=== PATIENT | female | born 1985 | race African-American/Black ===

== ENCOUNTER 2016-08-16 05:46 | Inpatient (IN) | payer OTHER ==
[~2016-08-16] VITALS: Ht 165.1 cm; Wt 115.7 kg
[2016-08-16] VITALS (13 sets, daily range): BP systolic 113–151; BP diastolic 60–94
[~2016-08-16 05:46] MED LIST: FERROUS SULFAT325 MG ORAL; LOSARTAN POTASS50 MG ORAL
[2016-08-16] MEDS ORDERED: cefOXitin Sod 2 GM in D5W 110 ML IVPB ONE (06:00)
[2016-08-16] MEDS ORDERED: NS Irrig 1000ml ONE (07:00)
[2016-08-16] MEDS ORDERED: Neostigmine 1mg/ml 10ml Inj ONE (07:00)
[2016-08-16] MEDS ORDERED: Nimbex 2mg/ml Inj 10ML IVP ONE (07:00)
[2016-08-16] MEDS ORDERED: fentaNYL 100 mcg/2 mL IV ONE (07:00)
[2016-08-16] MEDS ORDERED: LR 1000ml ONE (07:00)
[2016-08-16] MEDS ORDERED: Propofol 10mg/ml 20ml IV ONE (07:00)
[2016-08-16] MEDS ORDERED: Lidocaine 1% MPF 10mg/ml 5ml ONE (07:00)
[2016-08-16] MEDS ORDERED: Glycopyrrolate 0.2mg/ml 1ml Vial ONE (07:00)
[2016-08-16] MEDS ORDERED: Sterile Water Irrig 1000ml IRRIG ONE (07:00)
[2016-08-16] MEDS ORDERED: Lidocaine 1% Plain 30 ml INJ ONE (07:00)
[2016-08-16] MEDS ORDERED: Dexamethasone 4mg/ml vial ONE (07:00)
[2016-08-16] MEDS ORDERED: Ropivacaine 5mg/ml Vial 20ml INJ ONE (07:31)
[2016-08-16] MEDS ORDERED: Bupivacaine 0.5% Inj 30 ml vial INJ ONE (07:31)
[2016-08-16] MEDS ORDERED: LR 1000ml 1,000 ML IVLG SCH (08:46)
--- NOTE | 2016-08-16 08:53 | Anethesia Preoperative Eval ---
Anesthesia Pre-op PMH/ROS General Date of Evaluation: Aug 16, 2016 Time of Evaluation: 07:11 Anesthesiologist: Melissa ASA Score: ASA 2 Mallampati Score Class I : Soft palate, uvula, fauces, pillars visible Class II: Soft palate, uvula, fauces visible Class III: Soft palate, base of uvula visible Class IV: Only hard plate visible Mallampati Classification: Class II Surgeon: Neda Anesthesia History: none Family History: no anesthesia problems Allergies: Uncoded Allergies: Hayfever (Allergy, Intermediate, 08/16/16) Heavy congestion Medications: see eMAR Past Medical History Cardiovascular: Reports: HTN Hematology/Immune: Reports: anemia Musculoskeletal/Integumentary: Reports: other - Back Pain Other: obesity - Morbid BMI 44 Anesthesia Pre-op Phys. Exam Physician Exam Last Vital Signs Date Time Temp Pulse Resp B/P Pulse Ox O2 Delivery O2 Flow Rate FiO2 08/16/16 06:34 97.4 95 20 151/94 99 Room Air Constitutional: NAD Neurologic: CN 2-12 intact Cardiovascular: RRR Respiratory: CTA Gastrointestinal: S/NT/ND Airway Exam Mallampati Score: Class II MO: limited ROM: limited Teeth: intact Anesthesia Pre-op A/P Labs Urine Test Test 08/16/16 06:10 Urine HCG, Qualitative Negative Pre-Antibiotics Dru Grams Ancef IV Given Within 1 Hr of Incision: Yes Time Given: 08:26 Vlad Torres MD Aug 16, 2016 08:53
--- NOTE | 2016-08-16 08:56 | Immediate Post-Op Evaluation ---
Immediate Post-Op Evalulation Immediate Post-Op Evalulation Procedure: Open Abdominal Myomectomy Date of Evaluation: Aug 16, 2016 Time of Evaluation: 11:35 IV Fluids: 1200 LR Blood Products: 2 u PRBC, 1000 Albumin Estimated Blood Loss: 1700 Urinary Output: 200 Blood Pressure Systolic: 124 Blood Pressure Diastolic: 69 Pulse Rate: 89 Respiratory Rate: 16 O2 Sat by Pulse Oximetry: 99 Temperature (Fahrenheit): 97.2 Pain Score (1-10): 3 Nausea: No Vomiting: No Complications 0 Patient Status: awake, reacts, patent, extubated, none Hydration Status: adequate Dru Grams Ancef IV Given Within 1 Hr of Incision: Yes Time Given: 08:26 Vlad Torres MD Aug 16, 2016 08:56
[2016-08-16] MEDS ORDERED: Atropine Inj 1mg/10ml Syr IV PRN (09:00)
[2016-08-16] MEDS ORDERED: Ketorolac 30mg Inj IV PRN (09:00)
[2016-08-16] MEDS ORDERED: DiphenhydrAMINE 50mg/ml Inj IVP PRN ×2 (09:00→12:45)
[2016-08-16] MEDS ORDERED: Ketorolac 60mg Inj IV PRN (09:00)
[2016-08-16] MEDS ORDERED: Metoclopramide 10mg/2ml Inj IVP PRN (09:00)
[2016-08-16] MEDS ORDERED: LORazepam Inj 2mg/ml 1ml IV PRN (09:00)
[2016-08-16] MEDS ORDERED: Oxycodone/Acetaminophen 5-325 ORAL PRN (09:00)
[2016-08-16] MEDS ORDERED: Midazolam 2mg/2ml Inj IVP PRN (09:00)
[2016-08-16] MEDS ORDERED: Norco 5mg/325mg tab ORAL PRN (09:00)
[2016-08-16] MEDS ORDERED: fentaNYL 100 mcg/2 mL IV PRN (09:00)
[2016-08-16] MEDS ORDERED: Hydromorphone 0.5mg/0.5ml inj IVP PRN (09:00)
[2016-08-16] MEDS ORDERED: Norco 7.5mg/325mg tab ORAL PRN (09:00)
[2016-08-16] MEDS ORDERED: Meperidine 25mg/0.5ml Inj IV PRN (09:00)
[2016-08-16] MEDS ORDERED: Acetaminophen (Non formulary) 100 ML IV ONE (10:00)
[2016-08-16] MEDS ORDERED: Rate Change PCA 1 Each MISC PRN (11:15)
--- NOTE | 2016-08-16 11:19 | Pre-Procedure Note/Attestation ---
Pre-Procedure Note/Attestation Complete Prior to Procedure Planned Procedure: not applicable Procedure Narrative: Abdominal Myomectomy Indications for Procedure Pre-Operative Diagnosis: Very Large Uterine Fibroid Attestation I attest that I discussed the nature of the procedure; its benefits; risks and complications; and alternatives (and the risks and benefits of such alternatives ), prior to the procedure, with the patient (or the patient's legal claim representative). I attest that, if there was a reasonable possibility of needing a blood transfusion, the patient (or the patient's legal claim representative) was given the [facility] standardized written summary, pursuant to the Rom Michelle Blood Safety Act ([place] Health and Safety Code # 1645, as amended). I attest that I re-evaluated the patient just prior to the surgery and that there has been no change in the patient's H&P, except as documented below:NONE FILIPPO PENN Aug 16, 2016 11:19
--- NOTE | 2016-08-16 11:21 | Brief Operative Note ---
Immediate Post Operative Note Operative Note Pre-op Diagnosis: Very Large Uterine Fibroid Procedure: Abdominal Myomectomy Post-op Diagnosis: same as pre-op Surgeon: Alexus Penn Blanchard Grinder Operator: Justina Moran Anesthesiologist: Vlad Torres Anesthesia: general Specimen: yes - Myomas Complications: none Condition: stable Fluids: LR D5 @ 150 cc/hr Estimated Blood Loss: volume - 1700 ml Implant(s) used?: No ALEXUS PENN Aug 16, 2016 11:21
[2016-08-16 12:24] LABS: MEAN CORPUSCULAR HEMOGLOBIN 24.3 PG (27.0-31.0); MEAN CORPUSCULAR HGB CONC 30.3 G/DL (32.0-36.0); MEAN CORPUSCULAR VOLUME 80 FL (80-99); MEAN PLATELET VOLUME 8.8 FL (6.5-10.1); PLATELET COUNT 229 K/UL (150-450); RED BLOOD COUNT 4.24 M/UL (4.20-5.40); RED CELL DISTRIBUTION WIDTH 21.3 % (11.6-14.8); WHITE BLOOD COUNT 18.9 K/UL (4.8-10.8)
[2016-08-16] MEDS ORDERED: PCA HYDROmorphone 1mg/ml 30 ML IV PRN (12:30)
[2016-08-16] MEDS ORDERED: Naloxone 0.4mg/ml Inj IVP PRN (12:45)
[2016-08-16 12:50] LABS: ANION GAP 20 (5-15); CARBON DIOXIDE 19 mEQ/L (20-30); CHLORIDE 98 mEQ/L (98-107); CREATININE 1.1 mg/dL (0.5-0.9); GLOMERULAR FILTRATION RATE > 60 mL/min (>60); HEMOLYSIS 4; MAGNESIUM 1.5 mg/dL (1.7-2.5); POTASSIUM 4.5 mEQ/L (3.4-4.9); SODIUM 137 mEQ/L (135-145)
[2016-08-16 13:17] LABS: IONIZED CALCIUM 1.03 mmol/L (1.10-1.35)
[2016-08-16 13:40] LABS: ANISOCYTOSIS 2+; BAND NEUTROPHILS % (MANUAL) 3 % (0-8); BASOPHILS % (MANUAL) 0 % (0-2); EOSINOPHILS % (MANUAL) 0 % (0-3); HYPOCHROMASIA 1+; LYMPHOCYTES % (MANUAL) 9 % (20-45); MICROCYTES 1+; NEUTROPHILS % (MANUAL) 83 % (45-75); PLATELET ESTIMATE ADEQUATE; PLATELET MORPHOLOGY NORMAL; TOTAL CELLS COUNTED 100
[2016-08-16] MEDS: D5 1/2NS w/KCl 20mEq 1,000 ML IV SCH ×2 (14:15→22:46)
[2016-08-16] MEDS: PCA shift volume MISC SCH (19:21)
[2016-08-17] VITALS: BP 117/77
[2016-08-17] MEDS: D5 1/2NS w/KCl 20mEq 1,000 ML IV SCH ×4 (03:38→23:23)
[2016-08-17 04:00] VITALS: BP 115/64
[2016-08-17] MEDS: PCA shift volume MISC SCH (07:21)
[2016-08-17 07:24] LABS: MEAN CORPUSCULAR HEMOGLOBIN 24.4 PG (27.0-31.0); MEAN CORPUSCULAR HGB CONC 30.7 G/DL (32.0-36.0); MEAN CORPUSCULAR VOLUME 79 FL (80-99); MEAN PLATELET VOLUME 8.8 FL (6.5-10.1); PLATELET COUNT 180 K/UL (150-450); RED BLOOD COUNT 3.81 M/UL (4.20-5.40); RED CELL DISTRIBUTION WIDTH 20.9 % (11.6-14.8); WHITE BLOOD COUNT 11.1 K/UL (4.8-10.8)
[2016-08-17 08:00] VITALS: BP 134/78
[2016-08-17 09:01] LABS: ANISOCYTOSIS 2+; BAND NEUTROPHILS % (MANUAL) 0 % (0-8); BASOPHILS % (MANUAL) 0 % (0-2); EOSINOPHILS % (MANUAL) 0 % (0-3); HYPOCHROMASIA 1+; LYMPHOCYTES % (MANUAL) 15 % (20-45); MICROCYTES 1+; NEUTROPHILS % (MANUAL) 78 % (45-75); PLATELET ESTIMATE ADEQUATE; PLATELET MORPHOLOGY NORMAL; TOTAL CELLS COUNTED 100
--- NOTE | 2016-08-17 09:24 | General Progress Note ---
Progress Note Progress Note POD #1 S/P Extensive myomectomy, transfusion of 2 U pRBCs Afebrile, Good pain control with EMT I/85 - mainly with the maintenance dose Incision dry, intact Dressing removed Plan: Begin Toradol today DC EMT I/85 Ambulate Advance diet to regular FILIPPO PENN Aug 17, 2016 09:24
[2016-08-17] MEDS ORDERED: Ketorolac 30mg Inj IV ONE (09:30)
[2016-08-17] MEDS ORDERED: Ketorolac 60mg Inj IM ONE (09:30)
[2016-08-17] MEDS ORDERED: Ketorolac 30mg Inj IM ONE (09:30)
[2016-08-17 12:00] VITALS: BP 125/73
--- NOTE | 2016-08-17 12:42 | 48 Hour Post Anesthesia Eval ---
Post Anesthesia Evaluation Procedure: Open Abdominal Myomectomy Date of Evaluation: Aug 17, 2016 Time of Evaluation: 08:00 Blood Pressure Systolic: 134 0: 78 Pulse Rate: 96 Respiratory Rate: 19 Temperature (Fahrenheit): 98.2 O2 Sat by Pulse Oximetry: 95 Airway: patent Nausea: No Vomiting: No Pain Intensity: 2 Hydration Status: adequate Cardiopulmonary Status: at baseline Mental Status/LOC: patient returned to baseline Post-Anesthesia Complications: 0 Follow-up care needed: N/A - further care as per primary team SHYLA MEJIA M.D. Aug 17, 2016 12:42
[2016-08-17 16:00] VITALS: BP 119/75
[2016-08-17] MEDS: Ketorolac 30mg Inj IV SCH ×2 (16:38→23:22)
--- NOTE | 2016-08-17 17:15 | Operative Note - Dictated ---
PREOPERATIVE DIAGNOSES: Very large uterine fibroids and menometrorrhagia. POSTOPERATIVE DIAGNOSES: Very large uterine fibroids and menometrorrhagia. PROCEDURE PERFORMED: Extensive abdominal myomectomy. SURGEON: Raffi Red M.D. ANESTHESIOLOGIST: Vlad Torres M.D. ANESTHESIA TYPE: General endotracheal. ESTIMATED BLOOD LOSS: 1700 mL with 2 units of transfused packed RBCs. PROCEDURE IN DETAIL: After all the appropriate consents were signed, the patient was brought to the operating room and placed on table in supine position. General endotracheal anesthesia was induced with great difficulty. The intravenous was started under ultrasonic guidance. The patient was then placed on table in supine. Abdomen was prepped and draped in the usual fashion for the procedure. The Walker catheter was placed in the bladder. The procedure began with Pfannenstiel incision. She was carried through the subcutaneous tissue and the fascia was reached. The fascial incision was extended bilaterally to expose the rectus muscle. The rectus muscle was reflected both inferiorly and superiorly away from the fascia and then parted in the midline. The procedure continued with entering sharply in the peritoneal cavity and the uterus was visualized occupying the entire pelvic cavity and extending beyond the pelvic cavity above the umbilicus. At this time, the area of the uterus was identified and that was most convenient to begin the procedure. An incision was made after vasopressin was instilled. At this time, the process of morcellation of the fibroid began with process continuing for at least the next hour to an hour and 15 minutes. The process continued until the largest fibroid, which consisted of a tissue of greater than 2 to 3 pounds. Once this was completed, the closure of the uterine defect was undertaken with multiple layers of sutures placed to obliterate the defect and close this serosal area. At this time, once that was completed, additional fibroid was identified towards the fundal area and this fibroid was also grasped and removed and the defect was closed. At this time, it was decided to begin transfusing the patient as there was a significant loss of blood during the morcellation and removal of the first large fibroid. The process then continued with evaluating the pelvic cavity and the uterus was placed in the pelvis, which was now much smaller. The pelvis and the abdomen was irrigated and the debris were suctioned. The patient was once again examined and it was decided to close the peritoneal cavity. The peritoneum was closed first with 2-0 Vicryl suture. The muscle was reapproximated in the midline and the fascia was closed with #0 Vicryl suture bilaterally. The subcutaneous tissue was approximated with multiple layers of #0 plain suture. Skin was closed with Steri-Strips and benzoin. The dressing was now placed and the patient was transferred to the recovery room in excellent condition. Raffi Red M.D. DR: GEMA JOB#: [id number] CC:
[2016-08-17 20:00] VITALS: BP 116/67
[2016-08-18] VITALS: BP 114/72
[2016-08-18 04:00] VITALS: BP 126/71
[2016-08-18] MEDS: Ketorolac 30mg Inj IV SCH ×3 (05:22→14:30)
[2016-08-18] MEDS: D5 1/2NS w/KCl 20mEq 1,000 ML IV SCH ×3 (05:28→19:20)
[2016-08-18 08:01] VITALS: BP 140/84
[2016-08-18 11:55] VITALS: BP 144/84
[2016-08-18 16:11] VITALS: BP 127/76
--- NOTE | 2016-08-18 19:11 | Discharge Summary ---
Discharge Summary Hospital Course Date of Admission Aug 16, 2016 at 05:46 Date of Discharge 08/18/2016 Admitting Diagnosis Large Uterine Fibroids HPI Cielo Sweeney is a 31 year old female who was admitted on Aug 16, 2016 at 05: 46 for Uterine Fibroids Consultations NONE Procedures Extensive Abdominal Myomectomy Hospital Course Non-complicated Afebrile, ambulated, tolerating PO Wants to go home on POD#2 Discharge Condition Upon Discharge: stable Discharge Disposition Patient was discharged to HOME Will return for [place] Removal in 4 days Discharge Diagnoses: Discharge Instructions For Surgical Patients Clean and Dry: surgical site May shower: Yes Contact your physician for: bleeding, redness, other - FEVER FILIPPO PENN Aug 18, 2016 19:11
[2016-08-18] MEDS ORDERED: IBUPROFEN600 MG ORAL (19:22)
== END 2016-08-18 20:00 | disposition home or self-care (01) | DRG 742 ==
LOC: SDSOVERFLO 05:46 → 3E 12:39
PROC: 30233N1 Transfusion of Nonautologous Red Blood Cells into Peripheral Vein, Percutaneous Approach (ICD-10-PCS; principal; 2016-08-16 07:30)
PROC: 0UB90ZZ Excision of Uterus, Open Approach (ICD-10-PCS; principal; 2016-08-16 07:30)
DX: D25.9 Leiomyoma of uterus, unspecified (principal); Z68.41 Body mass index [BMI] 40.0-44.9, adult; E66.01 Morbid (severe) obesity due to excess calories; N92.1 Excessive and frequent menstruation with irregular cycle; D50.0 Iron deficiency anemia secondary to blood loss (chronic)
CPT/HCPCS: 36415; 80048; 81025; 82330; 83735; 84100; 85007; 85025; 86850; 86900; 86901; 86920; 87081; 94003; 94150; J2405; J2710